=== PATIENT | male | born 1990 | race Caucasian/White ===

== ENCOUNTER 2017-05-27 09:40 | Emergency (ER) | payer OTHER ==
[2017-05-27 09:59] VITALS: BP 135/95; PULSE 63; TEMP 97.7; BMI 39.1
--- NOTE | 2017-05-27 10:33 | PDOC ---
History of Present Illness - General Chief Complaint: Pain Stated Complaint: LEFT KNEE PAIN & SWELLING Time Seen by Provider: 05/27/17 10:08 History Source: Patient Exam Limitations: No Limitations - History of Present Illness Initial Comments: 26 yo M no pertinent PMH presents with L knee pain for past 2 days. He notices it more when he bends it and walks. He has been limping due to pain. Denies any known trauma, twisting injuries. No prior similar symptoms. Denies fever, chills. He notes that it has been swollen. Past History - Past Medical History Allergies/Adverse Reactions: Allergies Allergy/AdvReac Type Severity Reaction Status Date / Time No Known Allergies Allergy Verified 05/27/17 09:49 Home Medications: Ambulatory Orders Ibuprofen [Motrin -] 600 mg PO TID PRN #21 tablet 05/27/17 - Immunization History Immunization Up to Date: Yes - Psycho/Social/Smoking Cessation Hx Anxiety: No Suicidal Ideation: No Smoking History: Former smoker Have you smoked in the past 12 months: Yes Number of Cigarettes Smoked Daily: 0 If you are a former smoker, when did you quit?: 2016 Information on smoking cessation initiated: Yes 'Breaking Loose' booklet given: 09/04/16 Hx Alcohol Use: No Drug/Substance Use Hx: No Substance Use Type: None Review of Systems - Review of Systems Able to Perform ROS?: Yes Comments:: GENERAL/CONSTITUTIONAL: No fever or chills. No weakness. HEAD, EYES, EARS, NOSE AND THROAT: No change in vision. No ear pain or discharge. No sore throat. MUSCULOSKELETAL: +L knee swelling and lateral knee pain. No neck or back pain. SKIN: No rash NEUROLOGIC: No headache, vertigo, loss of consciousness, or change in strength/ sensation. *Physical Exam - Vital Signs Last Vital Signs Temp Pulse Resp BP Pulse Ox 97.7 F 63 15 135/95 98 05/27/17 09:48 05/27/17 09:48 05/27/17 09:48 05/27/17 09:48 05/27/17 09:48 - Physical Exam Comments: GENERAL: Awake, alert, and fully oriented, in no acute distress HEAD: No signs of trauma EXTREMITIES: L knee with FROM, but noted to have small effusion. +Inferolateral knee tenderness. No ligamentous instability. Remainder of extremities with normal range of motion, no edema. No clubbing or cyanosis. No cords, erythema, or tenderness NEUROLOGICAL: Cranial nerves II through XII grossly intact. Normal speech. Motor and sensation intact. Antalgic gait. SKIN: Warm, Dry, normal turgor, no rashes or lesions noted. Medical Decision Making - Medical Decision Making We discussed options in terms of RICE instructions vs possibly doing a steroid injection. I suspect this is meniscus injury/inflammation. In the absence of a large effusion, it may be more difficult to get into the joint space, and will be of less benefit. Patient opted for NSAIDs, rest, elevation. I counseled him to rest for a few days (normally he is on his feet all day at work), f/u with ortho. *DC/Admit/Observation/Transfer Diagnosis at time of Disposition: Knee pain, left Qualifiers: Chronicity: acute Qualified Code(s): M25.562 - Pain in left knee - Discharge Dispostion Disposition: HOME Condition at time of disposition: Stable Admit: No - Prescriptions Prescriptions: Ibuprofen [Motrin -] 600 mg PO TID PRN #21 tablet PRN Reason: Pain - Referrals Referrals: Trenton Ludwig MD [Staff Physician] - - Patient Instructions Printed Discharge Instructions: DI for Knee Sprain - Post Discharge Activity Work/School Note: Back to Work
[2017-05-27] MEDS ORDERED: IBUPROFEN 600 MG TABLET (FP) PO ONE ×2 (11:25→11:31)
== END 2017-05-27 11:40 | disposition home or self-care (01) ==
LOC: FER 09:40
DX: M25.562 Pain in left knee (principal); Z87.891 Personal history of nicotine dependence
CPT/HCPCS: 73562-TC-LT; 99282-25

== ENCOUNTER 2017-06-20 17:25 | Emergency (ER) | payer OTHER ==
[2017-06-20 17:34] VITALS: BP 143/88; PULSE 60; TEMP 98.6; BMI 38.7
--- NOTE | 2017-06-20 17:52 | PDOC ---
History of Present Illness - General History Source: Patient Exam Limitations: No Limitations - History of Present Illness Initial Comments: 06/20/17 18:03 The patient is a 26 year old male with no significant past medical history, who is returning to the ED for left knee pain. He notices it more when he bends it and walks. He has been limping due to pain. Patient states he was here on May 27 and had a normal x-ray done. Patient was discharged on Ibuprofen and rest but he states the pain has not decreased since. Patient states he also fell down on concrete on June 03 which worsened the pain. Patient states he is ambulatory and is on his feet all day for work. <Srinivasa Kemp - Last Filed: 06/20/17 18:03> <Mason Cornell - Last Filed: 06/20/17 18:10> - General Chief Complaint: Pain Stated Complaint: LEFT KNEE SWELLING AND PAIN Time Seen by Provider: 06/20/17 17:33 Past History <Srinivasa Kemp - Last Filed: 06/20/17 18:03> - Past Medical History Other medical history: PT DENIES - Immunization History Immunization Up to Date: Yes - Psycho/Social/Smoking Cessation Hx Anxiety: No Suicidal Ideation: No Smoking History: Never smoked Have you smoked in the past 12 months: Yes Number of Cigarettes Smoked Daily: 0 If you are a former smoker, when did you quit?: 2016 Information on smoking cessation initiated: No 'Breaking Loose' booklet given: 09/04/16 Hx Alcohol Use: No Drug/Substance Use Hx: No Substance Use Type: None <Mason Cornell - Last Filed: 06/20/17 18:10> - Past Medical History Allergies/Adverse Reactions: Allergies Allergy/AdvReac Type Severity Reaction Status Date / Time No Known Allergies Allergy Verified 06/20/17 17:28 Home Medications: Ambulatory Orders Ibuprofen [Motrin -] 600 mg PO TID PRN #21 tablet 05/27/17 Review of Systems - Review of Systems Able to Perform ROS?: Yes Comments:: 06/20/17 18:04 GENERAL/CONSTITUTIONAL: No fever or chills. No weakness. HEAD, EYES, EARS, NOSE AND THROAT: No change in vision. No ear pain or discharge. No sore throat. CARDIOVASCULAR: No chest pain or shortness of breath. RESPIRATORY: No cough, wheezing, or hemoptysis. GASTROINTESTINAL: No nausea, vomiting, diarrhea or constipation. GENITOURINARY: No dysuria, frequency, or change in urination. MUSCULOSKELETAL: + left knee pain. SKIN: No rash NEUROLOGIC: No headache, vertigo, loss of consciousness, or change in strength/ sensation. ENDOCRINE: No increased thirst. No abnormal weight change. HEMATOLOGIC/LYMPHATIC: No anemia, easy bleeding, or history of blood clots. ALLERGIC/IMMUNOLOGIC: No hives or skin allergy. <Srinivasa Kemp - Last Filed: 06/20/17 18:03> *Physical Exam - Vital Signs Last Vital Signs Temp Pulse Resp BP Pulse Ox 98.6 F 60 18 143/88 98 06/20/17 17:26 06/20/17 17:26 06/20/17 17:26 06/20/17 17:26 06/20/17 17:26 - Physical Exam Comments: 06/20/17 18:04 GENERAL: Awake, alert, and fully oriented, in no acute distress HEAD: No signs of trauma NECK: Normal ROM, supple, no lymphadenopathy, JVD, or masses LUNGS: Breath sounds equal, clear to auscultation bilaterally. No wheezes, and no crackles HEART: Regular rate and rhythm, normal S1 and S2, no murmurs, rubs or gallops EXTREMITIES: no swelling effusion deformity patella and patellar intact nontender. Moderate point tenderness lateral joint space. No tenderness to medial joint space. MCL and LCL without stress tenderness or laxity. Sheila is negative. Izabel sign positive for lateral meniscus. Distal pulses full no distal sensory or distal motor deficits. No injury to the proximal or distal extremity. NEUROLOGICAL: Cranial nerves II through XII grossly intact. Normal speech, normal gait SKIN: Warm, Dry, normal turgor, no rashes or lesions noted. <Srinivasa Kemp - Last Filed: 06/20/17 18:03> - Vital Signs Last Vital Signs Temp Pulse Resp BP Pulse Ox 98.6 F 60 18 143/88 98 06/20/17 17:26 06/20/17 17:26 06/20/17 17:26 06/20/17 17:26 06/20/17 17:26 <Mason Cornell - Last Filed: 06/20/17 18:10> Medical Decision Making - Medical Decision Making 06/20/17 18:08 Patient has a history of chronic knee pain which is exacerbated by his work, which involves prolonged standing and walking. It seems to improve with rest. 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 Symptomatic treatment until orthopedic follow-up. The patient understands that he will need further evaluation by a specialist and possible further radiologic imaging to precisely elucidate the cause of his pain. He agrees to schedule an appointment with Dr. Mcgrath in follow-up as directed. He is fully ambulatory with only slight pain in the knee upon discharge with his significant other to follow-up as directed <Mason Cornell - Last Filed: 06/20/17 18:10> *DC/Admit/Observation/Transfer - Attestations Scribe Attestion: 06/20/17 18:04 Documentation prepared by Srinivasa Kemp, acting as medical office coordinator for Mason Chris MD. <Srinivasa Kemp - Last Filed: 06/20/17 18:03> - Discharge Dispostion Admit: No <Mason Cornell - Last Filed: 06/20/17 18:10> Diagnosis at time of Disposition: Lateral meniscal tear Qualifiers: Tear current or old: old Meniscus tear of knee type: unspecified type Laterality: left Qualified Code(s): M23.201 - Derangement of unspecified lateral meniscus due to old tear or injury, left knee - Discharge Dispostion Disposition: HOME Condition at time of disposition: Stable - Referrals Referrals: Franco Mcgrath MD [Staff Physician] - 1 week - Patient Instructions Printed Discharge Instructions: DI for Meniscal Tear Additional Instructions: Rest, ice, elevate, Aleve as directed. Limited amount of standing and walking until pain subsides. See health safety specialist for further evaluation and treatment of possible meniscus injury in the left knee. - Post Discharge Activity Work/School Note: Back to Work
== END 2017-06-20 18:10 | disposition home or self-care (01) ==
LOC: FER 17:25
DX: M23.201 Derangement of unspecified lateral meniscus due to old tear or injury, left knee (principal); W18.39XA Other fall on same level, initial encounter; Y93.89 Activity, other specified; Y92.9 Unspecified place or not applicable
CPT/HCPCS: 99282-25

== ENCOUNTER 2024-02-20 18:06 | Emergency (ER) | payer OTHER ==
[2024-02-20 18:31] VITALS: BP 134/89; PULSE 75; RESP 18; TEMP 98.6; BMI 33.1
[2024-02-20] MEDS ORDERED: KETOROLAC TROMETHAMINE 30 MG/1 ML VIAL ONE (18:57)
[2024-02-20] MEDS ORDERED: METHOCARBAMOL 500 MG TABLET ONE (18:57)
[2024-02-20] MEDS ORDERED: LIDOCAINE 5% TOPICAL PATCH ONE (18:58)
[2024-02-20] MEDS: METHOCARBAMOL 500 MG TABLET PO ONE (19:11)
[2024-02-20] MEDS: KETOROLAC TROMETHAMINE 30 MG/1 ML VIAL IM ONE (19:11)
[2024-02-20] MEDS: LIDOCAINE PATCH REMOVAL MC ONE (19:11)
== END 2024-02-20 19:12 | disposition home or self-care (01) ==
LOC: FER 18:06
PROC: 3E0233Z Introduction of Anti-inflammatory into Muscle, Percutaneous Approach (ICD-10-PCS; principal; 2024-02-20)
DX: M47.896 Other spondylosis, lumbar region (principal); M54.50 Low back pain, unspecified
CPT/HCPCS: 72100-TC-FY; 99284-25